=== PATIENT | male | born 1965 | race Caucasian/White ===

== ENCOUNTER 2020-10-27 12:40 | Outpatient (RCR) | payer MEDICAID, SELFPAY ==
--- NOTE | 2020-10-27 14:00 | PTOPEVAL ---
PHYSICAL THERAPY EVALUATION/DISCHARGE 10-27-20 Thank you for referring Nabil Knowles to [facility].? Refer to the clinical summary below. He is not appropriate for PT lymphedema treatment at this time. Please review, sign, date and return this evaluation/discharge KEITH. I agree with and certify that the following plan of care is medically necessary. Referring Physician Date Referring Provider: Chang Brooks DPM Document 10/27/20 12:55 SHARMAINE (Rec: 10/27/20 14:00 SHARMAINE [id number]) Outpatient Past Medical History Past Medical History Source of Past Medical History Patient Neurological History Hx Neurological Disorders No Significant History Cardiovascular History Hx Hypertension Yes: meds Hx Other Cardiac Disorders Yes: CHF- to see toxicology teacher, do not have appt yet Respiratory History Hx Other Respiratory Disorders Yes: SOB and coughing during evaluation Gastrointestinal History Hx Gastrointestinal Disorders No Significant History Genitourinary History Hx Dialysis Yes: last dialysis January; dr want him to cont dialysis Musculoskeletal History Hx Back Pain Yes Hematological History Hx Hematological Disorders No Significant History Endocrine History Hx Diabetes Yes: pt reports blood sugar ranges 150-160 HEENT History Hx HEENT Disorders No Significant History Evaluation Information Problem Diagnosis B LE lymphdedema Onset October 08, 2020 Prior Level of Function Activity Level (Last 3 Months) Occupation medical disability Activity of Daily Living Ability Independent Indoor/Home Mobility Independent Functional Cognition (Planning, Shopping Independent , Taking Medications) Cooking No Cleaning Yes Laundry Yes Shopping Yes Driving No Home Setting Home Type House Environmental Barriers Stairs, 2-4 Living Situation With Friend Mobility Assistive Devices (Used Last 3 None,Cane Months) Comments Additional Prior Level of Function problems getting in/out car, Comments have to have help; live with room mate who assist ; indep with bathing, dressing; shopping with motorized scooter; reports problems getting in/ out bed due to bed on the floor/ mattress and box springs
--- NOTE | 2020-10-27 16:27 | PCPTNOTE ---
talked with nurse at dr office; discussed pt status with her and she requested the evaluation be faxed to her; I faxed to her.
== END 2020-10-28 11:21 | disposition home or self-care (01) ==
LOC: ANHPT 12:40
PROVIDERS: PCP Physician Assistant
DX: I89.0 Lymphedema, not elsewhere classified (principal); Z74.1 Need for assistance with personal care
CPT/HCPCS: 97161